=== PATIENT | born 1970 | race Asian ===

== ENCOUNTER 2024-08-01 12:36 | Day surgery (SDC) | payer OTHER, SELFPAY ==
--- NOTE | 2024-08-01 | PATH_ITS ---
[facility] Accession Number: [id number] No. of containers..01 Tissue . 01 Material submitted: . sigmoid colon - SIGMOID POLYP . 01 Diagnosis: SIGMOID POLYP: Colonic mucosa with benign lymphoid aggregate. No neoplasm identified. STO 08/06/2024 1500 Local . 01 Electronically signed: . Aquiles Bourgeois MD, Pathologist NPI- [id number] . 01 Gross description: . Received in formalin with two patient identifiers and sigmoid polyp, is a single hdez soft tissue fragment, 0.4 cm in greatest dimension, submitted in A1. ([id number]) /MRV 08/06/2024 1500 Local . 01 Pathologist provided ICD-10: K63.89 . 01 CPT . 251015 Specimen Comment: A courtesy copy of this report has been sent to [phone] Performed at: [address] [facility] [address], [place], [place] [id number] MD Aquiles Bourgeois MD Phone: [phone]
--- NOTE | 2024-08-01 13:34 | PM.HP.1 ---
History of Present Illness History of Present Illness Date Patient Seen: 08/01/24 Chief complaint: Screening Colonoscopy Narrative: The patient presents for colorectal screening. They have never had any previous examination for such. No personal or family history of colon cancer. On further history denies any recent gastrointestinal symptoms. No nausea, vomiting, abdominal pain, loss of appetite, unexplained weight loss, change in bowel habits, or blood per rectum. PFSH Social History household members: spouse Smoking Status: Never smoker alcohol intake: current Meds Home Medications and Allergies Home Medications Medication Instructions Recorded Confirmed Type sodium,potassium,mag sulfates 17.5 See Rx Instructions PO .COMPLEX 07/22/24 Rx gram-3.13 gram-1.6 gram oral soln #354 mL (Suprep Bowel Prep Kit) atorvastatin 40 mg tablet 40 mg PO DAILY 08/01/24 08/01/24 History Allergies Allergy/AdvReac Type Severity Reaction Status Date / Time No Known Drug Allergies Allergy Verified 08/01/24 13:23 Exam Narrative Exam Narrative: General adult woman alert oriented no acute distress Chest nonlabored respiration Extremities warm well perfused Assessment & Plan Assessment & Plan narrative: The patient requires colorectal screening and colonoscopy is recommended. Technical details were discussed. Risks, benefits, alternatives explained. Risks including but not limited to myocardial infarction, aspiration, bleeding, pain, missed lesion, incomplete examination, need for further radiographic studies, intestinal injury, and need for major abdominal surgery were discussed. All questions were answered to their satisfaction, and they are in agreement with this plan. Time-Based Coding :: [TOTAL MINUTES] spent with patient and on the chart (including review of chart, obtaining history, exam, reviewing outside data, placing orders, documenting exam and treatment plan, and counseling patient) on [DATE].
[2024-08-01 13:36] VITALS: BP 130/72; PULSE 70; RESP 16; TEMP 36.6; O2SAT 100; BMI 26.6
[2024-08-01 14:35] VITALS: BP 115/72; PULSE 59; RESP 16; TEMP 36.2; O2SAT 96
--- NOTE | 2024-08-01 14:37 | P.OP.COLON_ITS ---
Operative Date/Time/Diagnoses Date of procedure: 08/01/24 Time of procedure: 14:38 Pre-op diagnosis: Colorectal screening Post-op diagnosis: other (Colonic polyp) Procedure & Clinicians Study performed: Colonoscopy and polypectomy Same procedure as scheduled: Yes Indications: Screening Surgeon: Jj Boland Procedure Notes Procedure in detail: The history and physical was performed/updated and the patient is ASA class is 2. The procedure was discussed in detail with the patient. Potential risks complications including infection, bleeding, missed diagnosis, perforation, need for surgery, and were explained. Their questions were answered and informed consent was obtained. Patient was brought to the procedure room and placed standard monitoring equipment. The patient's vital signs were monitored continuously throughout the entire procedure. Prior to starting time-out was performed. The patient was placed in the left lateral recumbent position. Procedural sedation was administered by anesthesia. Examination began with a thorough inspection of the perianal area there was no evidence of fissures, fistulae, external hemorrhoids or cutaneous malignancy. The colonoscopy scope was then placed into the anal canal and was advanced to the cecum, which was identified by the ileocecal valve, the appendiceal orifice and the confluence of the taenia. The scope was then slowly withdrawn examining colon thoroughly in all directions, irrigating it of any residual stool. The scope was retroflexed within the rectum The patient tolerated the procedure well. They will be discharged once criteria are met. The prep was of good/excellent quality. The withdrawl time was 7 minutes. FINDINGS * Sigmoid polyp 3 mm removed with biopsy forceps * Mild diverticulosis of distal colon Specimen(s): other (Sigmoid colon polyp) Impression: Colonic polyp x1 Post-procedure Recommendations: High fiber diet Plan for aftercare: Follow up dependent on pathology findings Disposition: same day surgery
[2024-08-01 14:42] VITALS: BP 114/75; PULSE 72; RESP 16; O2SAT 98
[2024-08-01 14:50] VITALS: BP 130/69; PULSE 58; RESP 16; O2SAT 98
== END 2024-08-01 15:19 | disposition home or self-care (01) ==
PROVIDERS: PCP Nurse Practitioner Family; Referring Provider Surgery; Visit Provider Surgery
PROC: 0DJD8ZZ Inspection of Lower Intestinal Tract, Via Natural or Artificial Opening Endoscopic (ICD-10-PCS; CPT 45378; principal; 2024-08-01 14:00)
DX: Z12.11 Encounter for screening for malignant neoplasm of colon (principal); K57.30 Diverticulosis of large intestine without perforation or abscess without bleeding; K63.5 Polyp of colon
CPT/HCPCS: 45380; J2704